=== PATIENT | male | born 1995 | race Two or more races ===

== ENCOUNTER 2022-10-28 16:09 | Emergency (ER) | payer SELFPAY ==
[~2022-10-28] VITALS: Ht 180.3 cm; Wt 121.7 kg
[2022-10-28] MEDS ORDERED: IBUP-1455 PO (16:44)
[2022-10-28] MEDS ORDERED: CIPR1SUS8 LEFT EAR (16:44)
[2022-10-28] MEDS ORDERED: ACET500T58 PO (16:44)
[2022-10-28] MEDS ORDERED: KETOROLAC TROMETH 60MG/2ML VIAL IM ONE (16:45)
[2022-10-28] MEDS ORDERED: HYDROcodone-ACET 5/325MG TAB PO ONE (16:45)
[2022-10-28] MEDS ORDERED: DexAMETHasone SOD PHOS 10MG/1ML VIAL INJ IM ONE (16:45)
[2022-10-28 17:02] VITALS: BP 136/82; PULSE 75; RESP 18; TEMP 97.6; O2SAT 97
== END 2022-10-28 17:18 | disposition home or self-care (01) ==
LOC: ER 16:09
DX: H60.92 Unspecified otitis externa, left ear (principal)
CPT/HCPCS: 96372; 99284; J1100; J1885